=== PATIENT | male | born 1985 | race Caucasian/White ===

== ENCOUNTER 2016-08-01 21:38 | Emergency (ER) | payer SELFPAY ==
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
[2016-08-01] MEDS ORDERED: Succinylcholine 200 MG/10 ML MDV IV ONE (21:50)
[2016-08-01] MEDS ORDERED: Rocuronium 50 MG/5 ML Vial IVPUSH ONE (21:50)
[2016-08-01] MEDS ORDERED: Etomidate 2 MG/ML 20 ML SDV IVPUSH ONE (21:50)
[2016-08-01] MEDS ORDERED: Lidocaine 2% 100 MG/5 ML Syringe IVPUSH ONE (21:50)
[2016-08-01] MEDS ORDERED: Sodium Chloride 0.9% 1,000 ML IV SCH (22:05)
[2016-08-01 23:10] LABS: CHLORIDE,CL 111 mmol/L (98-110); SODIUM,NA 146 mmol/L (136-146)
--- NOTE | 2016-08-03 18:01 | CR ---
EXAM DATE: 08/01/16 PATIENT'S AGE: 31 Patient: CARMINE KUHN Facility: [place], [place] Site . Site : 1985 Study: XRay Chest [id number] 10:19:19 PM Ordering Physician: Cecilia Mathias Final Report: Indication: Nasogastric and orogastric tube placements Technique: Chest 1 view Comparison: Findings/Impression: Cardiovascular and mediastinum: Heart size and vasculature are normal in caliber and appearance. Mediastinum is within normal limits. Endotracheal tube is in satisfactory position 4 cm above the alexander. OG tube is coiled in the stomach. Lungs and pleural space: Lungs are clear. No sign of infiltrate or mass. No sign of pleural effusion. No pneumothorax. Bones and soft tissues: No acute findings. Dictated by Hermilo Rivas MD @ 08/01/2016 10:38:50 PM Dictated by: Hermilo Rivas MD @ 08/01/2016 22:38:57 (Electronic Signature) Report Signed by Proxy and Original Signed Document filed in the Medical Record. [facility]
== END 2016-08-01 22:51 | disposition other institution (70) ==
LOC: MW.ED 21:38
DX: S06.0X9A Concussion with loss of consciousness of unspecified duration, initial encounter (principal); S00.83XA Contusion of other part of head, initial encounter; S00.81XA Abrasion of other part of head, initial encounter; Y09 Assault by unspecified means; R41.82 Altered mental status, unspecified
CPT/HCPCS: 43753; 71010; 80053; 80305; 85025; 96361; 96374; 96375; 99291; G0480; J0330; J7040; 31500; 99284

== ENCOUNTER 2017-02-28 13:56 | Emergency (ER) | payer SELFPAY ==
[2017-02-28] MEDS ORDERED: diphenhydrAMINE 50 MG Cap PO ONE (14:14)
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
[2017-02-28 15:08] VITALS: BP 116/68
== END 2017-02-28 15:00 | disposition home or self-care (01) ==
LOC: MW.ED 13:56
DX: R21 Rash and other nonspecific skin eruption (principal); F10.10 Alcohol abuse, uncomplicated; F19.10 Other psychoactive substance abuse, uncomplicated
CPT/HCPCS: 99282; A9270